=== PATIENT | male | born 1940 | race Caucasian/White ===

== ENCOUNTER 2022-11-30 23:43 | Emergency (ER) | payer BC ==
[2022-11-30 23:54] VITALS: BP 148/76; PULSE 76; RESP 18; TEMP 97.3; BMI 25.7
[2022-12-01] MEDS ORDERED: LIDOCAINE 5% TOPICAL PATCH TP ONE (00:21)
[2022-12-01] MEDS ORDERED: METHOCARBAMOL 500 MG TABLET PO ONE (00:21)
[2022-12-01] MEDS ORDERED: IBUPROFEN 600 MG TABLET (FP) PO ONE ×2 (00:21→00:46)
[2022-12-01] MEDS ORDERED: METHOCARBAMOL 500 MG TABLET ONE ×2 (00:45→01:10)
[2022-12-01] MEDS ORDERED: LIDOCAINE 5% TOPICAL PATCH ONE (00:46)
[2022-12-01] MEDS ORDERED: LIDOCAINE PATCH REMOVAL MC SCH (22:00)
== END 2022-12-01 02:01 | disposition home or self-care (01) ==
LOC: JER 23:43
DX: M54.2 Cervicalgia (principal)
CPT/HCPCS: 99283-25